=== PATIENT | female | born 1980 | race Asian ===

== ENCOUNTER → 2016-12-21 | Outpatient (CLI) | payer OTHER ==
[~2016-12-21] MED LIST: CYMB30CA PO; FERRTAB2 PO; LYRI50CA PO; MACR100C2 PO; VITA500012 PO
[2016-12-21 13:41] LABS: BILIRUBIN, URINE NEG (NEG); BLOOD, URINE NEG (NEG); GLUCOSE,URINE NEG (NEG); KETONE, URINE NEG (NEG); MUCUS URINE FEW /lpf (OCC); NITRITE,URINE NEG (NEG); PH, URINE 6.5 (5.0-8.5); SQUAMOUS EPITHELIAL CELL URINE 5 /hpf (0-5); URINE COLOR LIGHT-YELLOW (YELLW/STRAW); URINE LEUKOCYTE ESTERASE LARGE (NEG)
[2016-12-21 13:46] LABS: AUTOMATED NEUTROPHIL # 6.9 TH/MM3 (1.8-7.7); BASOPHIL % 0.5 % (0.0-2.0); EOSINOPHIL # 0.1 TH/MM3 (0-0.4); HEMATOCRIT 44.2 % (35.0-46.0); HEMOGLOBIN 14.5 GM/DL (11.6-15.3); LYMPH % 11.9 % (9.0-44.0); MEAN CELL VOLUME 92.9 FL (80.0-100.0); MEAN CORPUSCULAR HEMOGLOBIN 30.5 PG (27.0-34.0); MEAN CORPUSCULAR HGB CONC 32.9 % (32.0-36.0); MEAN PLATELET VOLUME 8.7 FL (7.0-11.0); MONO % 6.7 % (0.0-8.0); MONOCYTE # 0.6 TH/MM3 (0-0.9); NEUT % 79.9 % (16.0-70.0); PLATELET COUNT 218 TH/MM3 (150-450); RED BLOOD COUNT 4.76 MIL/MM3 (4.00-5.30); RED CELL DISTRIBUTION WIDTH 17.6 % (11.6-17.2); WHITE BLOOD COUNT 8.7 TH/MM3 (4.0-11.0)
--- NOTE | 2016-12-22 17:50 | EKG ---
Date Performed: 12/21/2016 Time Performed: 13:33:28 PTAGE: 36 years EKG: Sinus rhythm LOW QRS VOLTAGE IN PRECORDIAL LEADS NONSPECIFIC T-WAVE ABNORMALITY ABNORMAL ECG NO PREVIOUS TRACING DOCTOR: Malina Jackson Interpretating Date/Time 12/22/2016 17:47:38
== END ==
LOC: CPRE 13:15
PROVIDERS: ATTEND Obstetrics & Gynecology
DX: Z01.810 Encounter for preprocedural cardiovascular examination (principal); Z01.812 Encounter for preprocedural laboratory examination; N92.0 Excessive and frequent menstruation with regular cycle; N94.6 Dysmenorrhea, unspecified; R94.31 Abnormal electrocardiogram [ECG] [EKG]
CPT/HCPCS: 36415; 81001; 84702; 85025; 93005

== ENCOUNTER 2016-12-23 10:24 | Observation (INO) | payer OTHER ==
--- NOTE | 2016-12-22 13:36 | MH ---
cc: DIMAS GUEVARA DATE OF ADMISSION: 12/23/2016 ADMISSION DIAGNOSIS Menorrhagia, dysmenorrhea and anemia. HISTORY OF PRESENT ILLNESS The patient is a 36-year-old single white female para 2-0-0-2, referred by her primary doctor for anemia. By history her cycles are regular but they last for 5 to 7 days and the first two days are so heavy she will bleed through a tampon every 1 hour. She reports crampy discomfort. Her lab profile studies from 10/13/2016 showed iron-deficiency anemia. Her vaginal ultrasound showed uterine enlargement to 10.4 cm with normal-appearing ovaries. Endometrial biopsy from 11/27/2016 was benign and she is now admitted for hysterectomy. PAST MEDICAL HISTORY PREVIOUS SURGERY 1. In 2004 she had . 2. In 2010 repeat with tubal. MEDICATIONS Vitamins. ALLERGIES None. TRANSFUSIONS None. SOCIAL HISTORY She is single, a teacher. Alcohol, tobacco and drugs are none. FAMILY HISTORY Noncontributory. PHYSICAL EXAMINATION GENERAL: A well-nourished, well-developed white female. VITAL SIGNS: Stable. HEENT: Exam is normal. CHEST: Clear. HEART: Regular rate. BREASTS: Symmetrical. ABDOMEN: Benign. PELVIC EXAM: Normal external genitalia and BUS. Vagina is normal. Cervix is normal. The uterus is about 12 weeks' size. Adnexa nonpalpable. ASSESSMENT As above. PLAN She is now admitted for laparoscopy, probable LASH procedure, possible MYLES, possible BSO. While in the office I explained the procedures, the risks, benefits complications and different recovery times based on the type of incision. The patient would like to proceed. MD CAYETANO Hilton/BRIDGETTE /1:19 PM /1:25 PM
[~2016-12-23] VITALS: Ht 158.8 cm; Wt 62.5 kg
[~2016-12-23 10:24] MED LIST changes: -MACR100C2 PO
[2016-12-23] MEDS ORDERED: CLINDAMYCIN PHOS 900 MG/6 ML VIAL ONE (11:36)
[2016-12-23] MEDS ORDERED: ACETAMINOPHEN 1000 MG/100 ML 100 ML IV ONE (11:36)
[2016-12-23] MEDS ORDERED: SODIUM CHLORIDE 0.9% INJ 100 ML ONE (11:38)
[2016-12-23] MEDS: CLINDAMYCIN INJ 900 MG in SODIUM CHLORIDE 0.9% INJ 100 ML IV ONE ×2 (11:45→12:46)
[2016-12-23] MEDS ORDERED: LIDOCAINE HCL 1% PF 5 ML AMPULE OTHER ONE (12:00)
[2016-12-23] MEDS ORDERED: ONDANSETRON HCL 4 MG/2 ML VIAL IV PUSH ONE (12:00)
[2016-12-23] MEDS ORDERED: NEOSTIGMINE 3 MG/3 ML SYR IV ONE (12:00)
[2016-12-23] MEDS ORDERED: STERILE WATER FOR INJECTION 20 ML VIAL IV ONE (12:00)
[2016-12-23] MEDS ORDERED: PROPOFOL 200 MG/20 ML AMP IV ONE (12:00)
[2016-12-23] MEDS ORDERED: GLYCOPYRROLATE 1 MG/5 ML SYRINGE IV PUSH ONE (12:00)
[2016-12-23] MEDS ORDERED: ROCURONIUM INJ 50 MG/5 ML SYRINGE IV PUSH ONE (12:00)
[2016-12-23] MEDS ORDERED: KETOROLAC TROMETHAMINE 30 MG/ML (IVP) VIAL IV PUSH ONE (12:00)
[2016-12-23] MEDS ORDERED: LACTATED RINGER'S 1000 ML INJ 1,000 ML IV ONE (12:00)
[2016-12-23] MEDS ORDERED: DEXAMETHASONE SOD PHOS 4 MG/ML VIAL IV ONE (12:00)
[2016-12-23] MEDS ORDERED: MIDAZOLAM HCL 2 MG/2 ML VIAL IV ONE (12:00)
[2016-12-23] MEDS ORDERED: BUPIVACAINE LIPOSOME PF 1.3% 20 ML VIAL ONE (12:41)
[2016-12-23] MEDS ORDERED: ACETAMINOPHEN 1000 MG/100 ML VIAL IV ONE (12:45)
[2016-12-23] MEDS ORDERED: POVIDONE IODINE 5% (ANTISEPSIS KIT) 4 APPLICATIONS EACH NARE PRN (12:45)
[2016-12-23] MEDS ORDERED: SODIUM CHLORID 0.9% 500 ML IV PRN (12:45)
[2016-12-23] MEDS ORDERED: CHLORHEXIDINE GLUCONATE 2 % 1 PACK (2 CLOTHS) TOPICAL PRN (12:45)
[2016-12-23] MEDS ORDERED: LACTATED RINGER'S 1000 ML IV PRN (12:45)
[2016-12-23] MEDS ORDERED: METOPROLOL TARTRATE 25 MG TAB PO PRN (12:45)
[2016-12-23] MEDS ORDERED: INSULIN HUMAN REGULAR 1,000 UNITS/10 ML VIAL SQ PRN (12:45)
[2016-12-23] MEDS ORDERED: PROMETHAZINE INJ 25 MG/ML VIAL IM PRN (14:30)
[2016-12-23] MEDS ORDERED: PROMETHAZINE HCL 25 MG TAB PO PRN (14:30)
[2016-12-23] MEDS ORDERED: ONDANSETRON ODT 4 MG TAB PO PRN (14:30)
[2016-12-23] MEDS ORDERED: ONDANSETRON HCL 4 MG/2 ML VIAL IV PUSH PRN (14:30)
[2016-12-23] MEDS ORDERED: ZOLPIDEM TARTRATE 5 MG TAB PO PRN (14:30)
[2016-12-23] MEDS ORDERED: HYDROmorphone HCL PF 1 MG/ML VIAL IV PUSH PRN (14:30)
[2016-12-23] MEDS ORDERED: SODIUM CHLORIDE 0.9% FLUSH 5 ML FLUSH FLUSH PRN (14:30)
[2016-12-23] MEDS ORDERED: diphenhydrAMINE HCL 25 MG CAP PO PRN (14:30)
[2016-12-23] MEDS ORDERED: DO NOT ADM ANY ANTICOAGULANT DRUGS PRN (14:43)
[2016-12-23] MEDS ORDERED: *MEPERIDINE 25 MG INJ VIAL PERIprocedural Use ONLY ONE (14:45)
[2016-12-23] MEDS ORDERED: *morphine SULFATE 8 MG/ML PERIprocedure ONLY ONE (15:08)
[2016-12-23] MEDS: D5-1/2 NS + KCL 20 MEQ INJ 1,000 ML IV SCH (15:15)
[2016-12-23 16:15] VITALS: O2SAT 99
[2016-12-23] MEDS ORDERED: ONDANSETRON INJ 8 MG in SODIUM CHLORIDE 0.9% INJ 50 ML IV PRN (16:15)
[2016-12-23 16:30] VITALS: BP 119/76; PULSE 96; RESP 18; TEMP 98.4
[2016-12-23] MEDS ORDERED: PREGABALIN 25 MG CAP PO PRN (17:00)
[2016-12-23] MEDS: KETOROLAC TROMETHAMINE 30 MG/ML (IVP) VIAL IVP SCH ×2 (17:41→21:56)
[2016-12-23] MEDS: DOCUSATE SODIUM 100 MG CAP PO SCH (17:42)
[2016-12-23 18:24] LABS: HEMATOCRIT 40.7 % (35.0-46.0); REVIEW FLAG FINAL
[2016-12-23 19:20] VITALS: BP 124/74; PULSE 82; RESP 16; TEMP 98
[2016-12-23] MEDS ORDERED: DULoxetine HCl DR 30 MG CAP PO SCH (20:00)
[2016-12-23] MEDS ORDERED: SODIUM CHLORIDE 0.9% FLUSH 5 ML FLUSH FLUSH SCH (21:00)
[2016-12-23] MEDS: ACETAMINOPHEN 1000 MG/100 ML VIAL IV SCH (21:57)
[2016-12-24 00:45] VITALS: BP 107/73; PULSE 74; RESP 18; TEMP 98.4
[2016-12-24] MEDS: D5-1/2 NS + KCL 20 MEQ INJ 1,000 ML IV SCH (01:04)
[2016-12-24 04:45] VITALS: BP 108/72; PULSE 83; RESP 18; TEMP 98.6
[2016-12-24] MEDS: KETOROLAC TROMETHAMINE 30 MG/ML (IVP) VIAL IVP SCH ×2 (04:53→10:00)
[2016-12-24] MEDS: ACETAMINOPHEN 1000 MG/100 ML VIAL IV SCH (04:53)
[2016-12-24] MEDS: DOCUSATE SODIUM 100 MG CAP PO SCH (04:53)
[2016-12-24 05:54] LABS: AUTOMATED NEUTROPHIL # 13.2 TH/MM3 (1.8-7.7); BASOPHIL % 0.3 % (0.0-2.0); HEMATOCRIT 38.6 % (35.0-46.0); HEMO FLAGS DIFF FINAL; LYMPH % 4.4 % (9.0-44.0); LYMPHOCYTE # 0.7 TH/MM3 (1.0-4.8); MEAN CELL VOLUME 92.6 FL (80.0-100.0); MEAN CORPUSCULAR HEMOGLOBIN 30.4 PG (27.0-34.0); MEAN CORPUSCULAR HGB CONC 32.8 % (32.0-36.0); MONO % 9.3 % (0.0-8.0); PLATELET COUNT 188 TH/MM3 (150-450); RED BLOOD COUNT 4.17 MIL/MM3 (4.00-5.30); RED CELL DISTRIBUTION WIDTH 17.3 % (11.6-17.2); WHITE BLOOD COUNT 15.4 TH/MM3 (4.0-11.0)
[2016-12-24 06:21] LABS: BICARBONATE 27.8 MEQ/L (21.0-32.0)
--- NOTE | 2016-12-24 08:29 | HHI.DCPOC ---
Discharge Care Plan Report Symptoms to Your Doctor -Temperature above 100.5 degrees -Redness, of incision or excessive or foul smelling drainage -Unusual pain or calf pain -Increased vaginal bleeding -Painful or difficulty urinating -Feelings of extreme sadness or anxiety after 2 weeks Goals to Promote Your Health * To prevent worsening of your condition and complications * To maintain your health at the optimal level Directions to Meet Your Goals Take your medications as prescribed Follow your dietary instruction Follow activity as directed Ensure plenty of rest for recovery Drink fluids for hydration Keep your appointments as scheduled Take your immunizations and boosters as scheduled If your symptoms worsen call your PCP, if no PCP go to Urgent Care Center or Emergency Room Smoking is Dangerous to Your Health. Avoid second hand smoke Call the 24-hour crisis hotline for domestic abuse at Zeus Barros MD Dec 24, 2016 08:29
--- NOTE | 2016-12-24 08:40 | MP ---
cc: DIMAS GUEVARA DATE OF SURGERY 12/23/2016 PREOPERATIVE DIAGNOSIS Menorrhagia, dysmenorrhea. POSTOPERATIVE DIAGNOSIS Menorrhagia, dysmenorrhea. PROCEDURE LASH with bilateral salpingectomy. ANESTHESIA General ET SURGEON Dimas Guevara MD CABLE HOOKER Gloria Larson ESTIMATED BLOOD LOSS For the procedure is about 50 cc FLUIDS One liter of crystalloid. OBJECTIVE FINDINGS Following the induction of adequate general endotracheal anesthesia, the patient was prepped and draped supine on the operating table in the dorsolithotomy position in the usual sterile fashion with the bladder being drained via Montiel catheterization. The abdomen was opened through a 3-cm curving infraumbilical incision using a knife to cut down through skin to the fascia. The fascia opened transversely. The peritoneum opened sharply. Palpation revealed some adhesions inferior to the port in the midline of the omentum. The mini GelPort was placed. The laparoscope inserted. A five port was placed in the left lower quadrant and AirSeal right lower quadrant. The uterus was about 12 weeks' size. The left ovary had a simple cyst about 2 cm., the right was normal. The tubes had previous interruptions. Cul-de-sacs were clear. Liver edge was normal. Harmonic scalpel now used to take down the omental adhesions and a Harmonic scalpel was used to take the left mesosalpinx, left utero-ovarian pedicle, left round ligament, left broad ligament, left-sided bladder flap with uterine vessels, the same on the right. The Harmonic scalpel was now used to amputate the fundus from the cervix. A pouch was inserted and used to extract the uterus intact. When the pouch was exteriorized, the uterus was morcellated and removed inside the pouch. The pouch was then removed, irrigation performed. No bleeding was evident. The ureters were inspected, good peristalsis. Inspection of the pelvis revealed normal anatomy of the appendix, and liver. The ureters showed good peristalsis. Low pressure test done with no bleeding. The operative site was closed with Evicel. The bladder was inflated with saline and showed no leaks. The GelPort was now removed and closed with a 2-0 Vicryl running for the peritoneum, 0-Vicryl running locking for the fascia corner to midline and tied, subcu with running 3-0 Vicryl and skin with subcuticular 3-0 Monocryl. The scope was now reinserted and used to check the sites of the GelPort and showed good closure and no entrapment. The pelvis was inspected and revealed no bleeding. The scope was removed. The gas was allowed to escape and the small wound was closed with 3-0 Monocryl subcuticular. Counts were correct. The patient's legs taken out of the stirrups. She was awakened and taken to the Recovery Room in good condition. MD CAYETANO Hilton/NANDO /2:31 PM /8:23 AM
[2016-12-24 09:30] VITALS: BP 117/80; PULSE 81; RESP 16; TEMP 98.5
== END 2016-12-24 11:13 | disposition home or self-care (01) ==
LOC: HSDC 10:24 → HSDI 14:29 → H1EA 16:20
PROVIDERS: ADMIT Obstetrics & Gynecology; ATTEND Obstetrics & Gynecology
DX: N80.0 Endometriosis of uterus (principal); N92.0 Excessive and frequent menstruation with regular cycle; N94.6 Dysmenorrhea, unspecified; N70.11 Chronic salpingitis; K66.0 Peritoneal adhesions (postprocedural) (postinfection); D64.9 Anemia, unspecified
CPT/HCPCS: 00840; 58541; 80048; 85014; 85018; 85025; 88307; 96374; 96376; C9290; G0378; J0131; J1100; J1885; J2175; J2250; J2270; J2405; J2710; J3010; J3480; J7040; J7120

== ENCOUNTER 2016-12-26 07:04 | Emergency (ER) | payer OTHER ==
[~2016-12-26] VITALS: Ht 160 cm; Wt 62.0 kg
[2016-12-26 07:17] VITALS: PULSE 105; RESP 17; TEMP 98.3; O2SAT 98
--- NOTE | 2016-12-26 07:39 | PD ---
HPI Chief Complaint: Abdominal Pain Time Seen by Provider: 07:15 Travel History International Travel<30 days: No Contact w/Intl Traveler<30days: No Traveled to known affect area: No History of Present Illness HPI The patient was seen and examined in the presence of the nurse. This patient complains of abdominal pain. Location is periumbilical. Severity is moderate. This patient had a hysterectomy 3 days ago. She was discharged 2 days ago. She's had some abdominal cramping since the surgery. She woke up at 4 AM with pain. She took a Percocet which helped until about 6 AM. And the pain came back. When it did she called paramedics and brought her to the ER for evaluation. She is not having vaginal bleeding or discharge. She denies fever. She ate yesterday without difficulty. Pain medication as partially alleviating her symptoms. Symptoms may be exacerbated by her fibromyalgia. PFSH Past Medical History Asthma: No Blood Disorders: No Heart Rhythm Problems: No Cancer: No Cardiovascular Problems: No High Cholesterol: No Chemotherapy: No Chest Pain: No Congestive Heart Failure: No COPD: No Diabetes: No Diminished Hearing: No Endocrine: No Genitourinary: No Hepatitis: No Hiatal Hernia: No Immune Disorder: Yes (QUESTIONABLE FIBROMYALGIA) Musculoskeletal: No Neurologic: No Psychiatric: No Reproductive: No Respiratory: No Radiation Therapy: No Sleep Apnea: No Thyroid Disease: No Tetanus Vaccination: > 5 Years ?: Not Past Surgical History Abdominal Surgery: No AICD: No Cardiac Surgery: No Section: Yes (x2) Ear Surgery: No Endocrine Surgery: No Eye Surgery: No Genitourinary Surgery: No Gynecologic Surgery: Yes ( X2) Hysterectomy: Yes Joint Replacement: No Neurologic Surgery: No Oral Surgery: Yes (TONSILLECTOMY) Pacemaker: No Thoracic Surgery: No Tonsillectomy: Yes Other Surgery: Yes ( X2, TONSELLECTOMY) Social History Alcohol Use: Yes (seldom) Tobacco Use: No Substance Use: No Allergies-Medications (Allergen,Severity, Reaction): Coded Allergies: Penicillins (Verified Allergy, Severe, CRAMPING, 12/23/16) Reported Meds & Prescriptions Reported Meds & Active Scripts Active Reported Ergocalciferol 50,000 Unit Cap 50,000 Units PO Q7D Ferralet (Multi-Vit/Iron-Folic Zgrm-Z30-Ulm C) 90-1-0.012-120 mg Tab 1 Tab PO DAILY Lyrica (Pregabalin) 50 Mg Cap 50 Mg PO BID PRN Cymbalta DR (Duloxetine HCl) 30 Mg Capdr 30 Mg PO DAILY Review of Systems General / Constitutional: No: Fever Eyes: No: Visual changes HENT: No: Headaches Cardiovascular: No: Chest Pain or Discomfort Respiratory: No: Shortness of Breath Gastrointestinal: Positive: Abdominal Pain Genitourinary: No: Dysuria Musculoskeletal: No: Pain Skin: No Rash Neurologic: No: Weakness Psychiatric: No: Depression Endocrine: No: Polydipsia Hematologic/Lymphatic: No: Easy Bruising Physical Exam Narrative GENERAL: Well-nourished, well-developed patient in no apparent distress. SKIN: Focused skin assessment reveals no rash and nodules. Skin is Warm and dry. HEAD: Atraumatic. Normocephalic. EYES: Pupils equal and round. No scleral icterus. No injection or drainage. ENT: No nasal bleeding or discharge. Mucous membranes pink and moist. NECK: Trachea midline. No JVD. CARDIOVASCULAR: Regular rate and rhythm. No murmur appreciated. RESPIRATORY: No accessory muscle use. Clear to auscultation. Breath sounds equal bilaterally. GASTROINTESTINAL: Abdomen soft, mild periumbilical tenderness without rebound or guarding, nondistended. Hepatic and splenic margins not palpable. Bowel sounds heard MUSCULOSKELETAL: No obvious deformities. No clubbing. No cyanosis. No edema. NEUROLOGICAL: Awake and alert. No obvious cranial nerve deficits. Motor grossly within normal limits. Normal speech. PSYCHIATRIC: Appropriate mood and affect; insight and judgment normal. Data Data Last Documented VS Vital Signs Date Time Temp Pulse Resp B/P (MAP) Pulse Ox O2 Delivery O2 Flow Rate FiO2 12/26/16 08:14 18 12/26/16 07:17 98.3 105 98 Orders Orders Iv Access Insert/Monitor (12/26/16 07:33) Complete Blood Count With Diff (12/26/16 07:33) Basic Metabolic Panel (Bmp) (12/26/16 07:33) Ondansetron Inj (Zofran Inj) (12/26/16 07:45) Morphine Inj (Morphine Inj) (12/26/16 07:45) Urinary Catheter Insert/Apply (12/26/16 09:03) Labs Laboratory Tests Test 12/26/16 08:05 White Blood Count 15.5 TH/MM3 Red Blood Count 4.59 MIL/MM3 Hemoglobin 14.0 GM/DL Hematocrit 43.3 % Mean Corpuscular Volume 94.4 FL Mean Corpuscular Hemoglobin 30.6 PG Mean Corpuscular Hemoglobin Concent 32.4 % Red Cell Distribution Width 17.2 % Platelet Count 189 TH/MM3 Mean Platelet Volume 8.8 FL Neutrophils (%) (Auto) 85.6 % Lymphocytes (%) (Auto) 5.3 % Monocytes (%) (Auto) 8.2 % Eosinophils (%) (Auto) 0.7 % Basophils (%) (Auto) 0.2 % Neutrophils # (Auto) 13.3 TH/MM3 Lymphocytes # (Auto) 0.8 TH/MM3 Monocytes # (Auto) 1.3 TH/MM3 Eosinophils # (Auto) 0.1 TH/MM3 Basophils # (Auto) 0.0 TH/MM3 CBC Comment DIFF FINAL Differential Comment Blood Urea Nitrogen 17 MG/DL Creatinine 2.07 MG/DL Random Glucose 98 MG/DL Calcium Level 9.1 MG/DL Sodium Level 133 MEQ/L Potassium Level 4.0 MEQ/L Chloride Level 99 MEQ/L Carbon Dioxide Level 27.4 MEQ/L Anion Gap 7 MEQ/L Estimat Glomerular Filtration Rate 27 ML/MIN [facility] Medical Decision Making Medical Screen Exam Complete: Yes Emergency Medical Condition: Yes Medical Record Reviewed: Yes Differential Diagnosis Postoperative pain, ileus, colitis Narrative Course I have reviewed the patient's electronic medical record. Reviewed her admission history and physical from a few days ago as well as her operative note. Patient's last hemoglobin was 12.7 IV placed CBC shows leukocytosis of 15,000 same as it was 2 days ago Metabolic profile shows worsening of her creatinine up to 2.07 with decreased GFR I gave her dose of IV morphine and Zofran for symptom relief I placed a Montiel catheter to evaluate for urinary retention. She put out 1400 cc of yellow urine She immediately felt improved I switched her to a leg bag. I reviewed with her P[employer] Dr. Zeus andrews He will see her on Wednesday to reevaluate and remove the catheter He recommends Macrobid prophylaxis prescription I will write Diagnosis Primary Impression: Abdominal pain Qualified Codes: R10.33 - Periumbilical pain Additional Impressions: Postoperative urinary retention Acute renal insufficiency Additional Instructions: The patient was advised to follow up with Dr. andrews on Wednesday Med/Other Pt SpecificInfo: Prescription(s) given Disposition: 01 DISCHARGE HOME Condition: Stable Danielito Rosenberg MD Dec 26, 2016 07:39
[2016-12-26] MEDS ORDERED: ONDANSETRON HCL 4 MG/2 ML VIAL IV ONE (07:45)
[2016-12-26] MEDS ORDERED: MORPHINE SULFATE 4 MG/ML INJ IV PUSH ONE (07:45)
[2016-12-26 08:14] VITALS: RESP 18
[2016-12-26 08:19] LABS: AUTOMATED NEUTROPHIL # 13.3 TH/MM3 (1.8-7.7); BASOPHIL % 0.2 % (0.0-2.0); EOSINOPHIL # 0.1 TH/MM3 (0-0.4); EOSINOPHIL % 0.7 % (0.0-4.0); HEMATOCRIT 43.3 % (35.0-46.0); HEMO FLAGS DIFF FINAL; LYMPH % 5.3 % (9.0-44.0); LYMPHOCYTE # 0.8 TH/MM3 (1.0-4.8); MEAN CELL VOLUME 94.4 FL (80.0-100.0); MEAN CORPUSCULAR HEMOGLOBIN 30.6 PG (27.0-34.0); MEAN CORPUSCULAR HGB CONC 32.4 % (32.0-36.0); MONO % 8.2 % (0.0-8.0); NEUT % 85.6 % (16.0-70.0); PLATELET COUNT 189 TH/MM3 (150-450); RED BLOOD COUNT 4.59 MIL/MM3 (4.00-5.30); RED CELL DISTRIBUTION WIDTH 17.2 % (11.6-17.2); WHITE BLOOD COUNT 15.5 TH/MM3 (4.0-11.0)
[2016-12-26 08:49] LABS: BICARBONATE 27.4 MEQ/L (21.0-32.0)
[2016-12-26] MEDS ORDERED: MACR100C2 PO (09:53)
== END 2016-12-26 10:33 | disposition home or self-care (01) ==
LOC: NEPE 07:04
DX: R10.33 Periumbilical pain (principal); R33.8 Other retention of urine; N28.9 Disorder of kidney and ureter, unspecified; N99.89 Other postprocedural complications and disorders of genitourinary system
CPT/HCPCS: 51702; 80048; 85025; 96374; 96375; 99284; J2270; J2405